=== PATIENT | male | born 1965 | race Caucasian/White ===

== ENCOUNTER 2018-02-22 16:58 | Emergency (ER) | payer OTHER ==
--- NOTE | 2018-02-22 17:22 | EDM.PDOC ---
ED HPI GENERAL MEDICAL PROBLEM - General Chief Complaint: Lower Extremity Injury/Pain Stated Complaint: RT CALF IN PAIN Time Seen by Provider: 02/22/18 17:07 Source of Information: Reports: Patient History Limitations: Reports: No Limitations - History of Present Illness INITIAL COMMENTS - FREE TEXT/NARRATIVE: History of present illness: []Patient has a family history of blood clots and has had pain in his right calf for the past 2 days. He has minimal swelling and denies any trauma or long distance travel. Patient called his primary doctor who asked him to come to the ER to get this checked for a DVT. Review of systems: As per history of present illness and below otherwise all systems reviewed and negative. Past medical history: As per history of present illness and as reviewed below otherwise noncontributory. Surgical history: As per history of present illness and as reviewed below otherwise noncontributory. Social history: No reported history of drug or alcohol abuse. Family history: As per history of present illness and as reviewed below otherwise noncontributory. Physical exam: General: Well developed, well nourished in NAD HEENT: Atraumatic, normocephalic, pupils reactive, negative for conjunctival pallor or scleral icterus, mucous membranes moist, throat clear, neck supple, nontender, trachea midline. Lungs: Clear to auscultation, breath sounds equal bilaterally, chest nontender. Heart: S1S2, regular, negative for clicks, rubs, or JVD. Abdomen: Soft, nondistended, nontender. Negative for masses or hepatosplenomegaly. Negative for costovertebral tenderness. Pelvis: Stable nontender. Genitourinary: Deferred. Rectal: Deferred. Extremities: Atraumatic, positive tenderness in the inferior gastrocnemius area , minimal edema, negative for cords or calf pain. Neurovascular unremarkable. Neuro: Awake, alert, oriented. Cranial nerves II through XII unremarkable. Cerebellum unremarkable. Motor and sensory unremarkable throughout. Exam nonfocal. Diagnostics: []Ultrasound negative for DVT Therapeutics: [] Impression: []Right Calf pain Plan: []Ibuprofen for pain, use ice or heat, follow-up with PMD Definitive disposition and diagnosis as appropriate pending reevaluation and review of above. Right Leg Pain Score (Numeric/FACES): 2 - Related Data Allergies Allergy/AdvReac Type Severity Reaction Status Date / Time No Known Allergies Allergy Verified 02/22/18 17:17 Home Meds: Home Meds Levothyroxine [Synthroid] 88 mcg PO DAILY 02/22/18 [History] amLODIPine Besylate/Benazepril [Amlodipine-Benazepril 10-40 MG] 10 - 40 mg PO TID 02/22/18 [History] hydroCHLOROthiazide [Hydrochlorothiazide] 25 mg PO DAILY 02/22/18 [History] metFORMIN HCl [Metformin HCl] 500 mg PO DAILY 02/22/18 [History] Review of Systems - Review of Systems Review Of Systems: ROS reveals no pertinent complaints other than HPI. ED EXAM, GENERAL - Physical Exam Exam: See Below (History of present illness) Course - Vital Signs Last Recorded V/S: Last Vital Signs Temp 98.4 F 02/22/18 17:10 Pulse 74 02/22/18 17:10 Resp 16 02/22/18 17:10 BP 156/97 H 02/22/18 17:10 Pulse Ox 95 02/22/18 17:10 - Orders/Labs/Meds Orders: Active Orders 24 hr Category Date Time Status Venous Doppler Lwr Ext Rt [US] Stat Exams 02/22/18 17:20 Taken Departure - Departure Time of Disposition: 18:45 Disposition: Home, Self-Care 01 Condition: Good Clinical Impression: Right calf pain - Discharge Information *PRESCRIPTION DRUG MONITORING PROGRAM REVIEWED*: Not Applicable Referrals: PCP,None [Primary Care Provider] - Forms: ED Department Discharge Additional Instructions: The following information is given to patients seen in the emergency department who are being discharged to home. This information is to outline your options for follow-up care. We provide all patients seen in our emergency department with a follow-up referral. The need for follow-up, as well as the timing and circumstances, are variable depending upon the specifics of your emergency department visit. If you don't have a primary care physician on staff, we will provide you with a referral. We always advise you to contact your personal physician following an emergency department visit to inform them of the circumstance of the visit and for follow-up with them and/or the need for any referrals to a consulting specialist. The emergency department will also refer you to a specialist when appropriate. This referral assures that you have the opportunity for follow-up care with a specialist. All of these measure are taken in an effort to provide you with optimal care, which includes your follow-up. Under all circumstances we always encourage you to contact your private physician who remains a resource for coordinating your care. When calling for follow-up care, please make the office aware that this follow-up is from your recent emergency room visit. If for any reason you are refused follow-up, please contact the [facility] Emergency Department at and asked to speak to the emergency department charge nurse. ibuprofen pain follow-up with primary care return if symptoms worsen or change. [facility] [address] [place] [id number] - My Orders Last 24 Hours: My Active Orders 02/22/18 17:20 Venous Doppler Lwr Ext Rt [US] Stat - Assessment/Plan Last 24 Hours: My Active Orders 02/22/18 17:20 Venous Doppler Lwr Ext Rt [US] Stat
--- NOTE | 2018-02-23 09:27 | US ---
EXAM DATE: 02/22/18 PATIENT'S AGE: 52 Patient: JADA LOPEZ Facility: [place], [place] Site . Site : [id number] Study: US Extremity [id number]/[id number] 6:00:17 PM Ordering Physician: Vazquez Reynolds Final Report: INDICATION: Right calf pain TECHNIQUE: Ultrasound venous duplex right lower extremity. Schultz-scale, color Doppler, and spectral Doppler imaging were performed with compression and augmentation. COMPARISON: None FINDINGS: Deep veins: The right femoral, common femoral, popliteal, and visualized calf veins are fully compressible, demonstrate normal color flow, and normal response to mechanical augmentation. The Duplex Doppler waveforms are normal in appearance. The visualized contralateral left common femoral vein is patent. Superficial veins: The visualized greater saphenous and superficial veins of the leg and calf are unremarkable. Soft tissues: No masses or cysts are identified. No adenopathy is seen. IMPRESSION: 1. No sonographic evidence of deep venous thrombosis seen. Dictated by: Adria Saez MD @ 02/22/2018 18:17:18 (Electronic Signature) Report Signed by Proxy. VANNA
== END 2018-02-22 18:55 | disposition home or self-care (01) ==
LOC: MW.ED 16:58
DX: M79.661 Pain in right lower leg (principal); Z79.84 Long term (current) use of oral hypoglycemic drugs; Z79.899 Other long term (current) drug therapy
CPT/HCPCS: 93971-26-RT; 93971-RT; 99283-25